=== PATIENT | male | born 1985 | race Caucasian/White ===

== ENCOUNTER 2023-01-12 21:02 | Emergency (ER) | payer SELFPAY ==
[~2023-01-12] VITALS: Ht 162.6 cm; Wt 69.0 kg
[2023-01-12 21:14] VITALS: BP 139/95; PULSE 100; RESP 12; TEMP 97.8; O2SAT 100
[2023-01-12] MEDS ORDERED: DEXTROSE 50% WATER 50ML SYRINGE IV ONE ×2 (21:45)
== END 2023-01-12 23:30 | disposition left against medical advice (07) ==
LOC: ER 21:02
DX: F10.129 Alcohol abuse with intoxication, unspecified (principal); Y90.0 Blood alcohol level of less than 20 mg/100 ml; E11.9 Type 2 diabetes mellitus without complications
CPT/HCPCS: 82962; 93005; 99283